=== PATIENT | male | born 1940 | race Caucasian/White ===

== ENCOUNTER 2017-08-22 08:49 | Outpatient (CLI) | payer OTHER | END 2017-08-22 09:30 | disposition home or self-care (01) | LOC: NUCLEAR 08:49 | DX: I67.89 Other cerebrovascular disease (principal) ==

== ENCOUNTER → 2018-10-02 | Outpatient (CLI) | payer OTHER | END | disposition home or self-care (01) | LOC: NUCLEAR 07:00 | DX: I20.9 Angina pectoris, unspecified (principal) | CPT/HCPCS: 78452; 93017; A9500 ==

== ENCOUNTER 2020-09-29 06:44 | Outpatient (CLI) | payer OTHER | END 2020-09-29 06:48 | disposition home or self-care (01) | LOC: NUCLEAR 06:44 | PROVIDERS: ATTEND Internal Medicine Cardiovascular Disease | DX: I20.9 Angina pectoris, unspecified (principal); R07.89 Other chest pain | CPT/HCPCS: 78452; 93017; A9500; J0153 ==

== ENCOUNTER 2022-12-20 07:30 | Outpatient (CLI) | payer OTHER | END 2022-12-20 07:35 | disposition home or self-care (01) | LOC: SONOGRAMA 07:30 | PROVIDERS: ATTEND Internal Medicine Cardiovascular Disease | DX: K80.80 Other cholelithiasis without obstruction (principal) ==

== ENCOUNTER 2023-01-10 07:07 | Outpatient (CLI) | payer OTHER | END 2023-01-10 07:11 | disposition home or self-care (01) | LOC: NUCLEAR 07:07 | PROVIDERS: ATTEND Internal Medicine Cardiovascular Disease | DX: I25.10 Atherosclerotic heart disease of native coronary artery without angina pectoris (principal) | CPT/HCPCS: 78452; 93017; A9500; J0153 ==

== ENCOUNTER 2025-04-29 07:10 | Outpatient (CLI) | payer OTHER | END 2025-04-29 07:11 | disposition home or self-care (01) | LOC: NUCLEAR 07:10 | PROVIDERS: ATTEND Internal Medicine Cardiovascular Disease | DX: I20.9 Angina pectoris, unspecified (principal) | CPT/HCPCS: 78452; 93017; A9500; J0153 ==